=== PATIENT | female | born 1985 | race Caucasian/White ===

== ENCOUNTER 2016-10-01 16:37 | Emergency (ER) | payer OTHER ==
[2016-10-01 16:41] VITALS: BP 134/73; PULSE 69; TEMP 98; BMI 32.3
--- NOTE | 2016-10-01 16:41 | PDOC ---
Rapid Medical Evaluation Time Seen by Provider: 10/01/16 16:39 Medical Evaluation: 10/01/16 16:40 30 yo F c/o 4cm vertical lac to medial distal forearm after accidentally cutting herself with a slip box changer while " doing a project". Bleeding controlled with bandaid. Last tetanus x2 years ago
[2016-10-01] MEDS ORDERED: IBUPROFEN 600 MG TABLET (FP) PO ONE ×2 (17:19→17:35)
--- NOTE | 2016-10-01 17:45 | PDOC ---
History of Present Illness - General Chief Complaint: Laceration Stated Complaint: LACERATION Time Seen by Provider: 10/01/16 16:39 - History of Present Illness Initial Comments: 10/01/16 17:45 CHIEF COMPLAINT: Laceration HISTORY OF PRESENT ILLNESS: This is an otherwise healthy 30 year old female who presents for accidental laceration to the left 1st forearm sustained just prior to arrival while using a boxcutter. REVIEW OF SYSTEMS: GENERAL/CONSTITUTIONAL: No fever or chills. No weakness. No weight change. SKIN: See HPI. NEUROLOGIC: No loss of sensation. HEMATOLOGIC/LYMPHATIC: No anemia, easy bleeding, or history of blood clots. ALLERGIC/IMMUNOLOGIC: No hives or skin allergy. No latex allergy. PHYSICAL EXAM: GENERAL: The patient is awake, alert, and fully oriented, in no acute distress. ABDOMEN: 3cm linear laceration to volar aspect of left forearm with minimal active bleeding. EXTREMITIES: Normal range of motion, no edema. NEUROLOGICAL: Normal speech, normal gait. CN II-XII grossly intact. Movement and sensation of fingers intact. Two point discrimination intact. PSYCH: Normal mood, normal affect. SKIN: Warm, dry, normal turgor, no rashes or lesions noted. Past History - Past Medical History Allergies/Adverse Reactions: Allergies Allergy/AdvReac Type Severity Reaction Status Date / Time No Known Allergies Allergy Verified 10/01/16 16:41 Home Medications: Ambulatory Orders NK [No Known Home Medication] 10/01/16 Other medical history: DENIES - Psycho/Social/Smoking Cessation Hx Suicidal Ideation: No Smoking History: Never smoked Information on smoking cessation initiated: No *Physical Exam - Vital Signs Last Vital Signs Temp Pulse Resp BP Pulse Ox 98 F 69 18 134/73 98 10/01/16 16:39 10/01/16 16:39 10/01/16 16:39 10/01/16 16:39 10/01/16 16:39 Procedures - Laceration/Wound Repair Left Volar Arm Wound Length: 2.6 to 5.0 cm Wound Explored: clean Wound's Depth, Shape: into muscle, linear Irrigated w/ Saline: Yes Betadine Prep: Yes Anesthesia: 1% Lidocaine w/ Epi Amount of Anesthetic (ccs): 2 Wound Debrided: minimal Wound Repaired With: Sutures Suture Size/Type: 5:0 Number of Sutures: 7 Sterile Dressing Applied: Yes Medical Decision Making - Medical Decision Making 10/01/16 17:47 A/P: 30 year old female with laceration. -Tetanus booster was given while she was with her child, who is now 19 months old -Ibuprofen for pain -Wound irrigation and laceration repair -Followup instructions and return precautions reviewed *DC/Admit/Observation/Transfer Diagnosis at time of Disposition: Laceration - Discharge Dispostion Disposition: HOME Condition at time of disposition: Stable Admit: No - Referrals Referrals: Hiwot Campo [Primary Care Provider] - - Patient Instructions Printed Discharge Instructions: DI for Laceration Repair Additional Instructions: -Keep clean, dry, and covered for 48 hours -After that, wash gently with soap and water and pat dry -Apply bacitracin ointment once daily -Return here in 7-10 days to have the stitches removed -Return sooner if you develop redness around the wound, fever, or any other concerning symptoms
== END 2016-10-01 17:50 | disposition home or self-care (01) ==
LOC: JERFT 16:37
PROC: 0JQH0ZZ Repair Left Lower Arm Subcutaneous Tissue and Fascia, Open Approach (ICD-10-PCS; principal; 2016-10-01)
DX: S51.812A Laceration without foreign body of left forearm, initial encounter (principal); W27.8XXA Contact with other nonpowered hand tool, initial encounter; Y93.89 Activity, other specified; Y92.038 Other place in apartment as the place of occurrence of the external cause
CPT/HCPCS: 99281-25

== ENCOUNTER 2016-10-09 13:19 | Emergency (ER) | payer OTHER ==
[2016-10-09 13:32] VITALS: BP 116/65; PULSE 65; TEMP 97.5; BMI 32.3
[2016-10-09] MEDS ORDERED: BACITRACIN 30 GM TUBE TOPICAL OINTMENT ONE (13:57)
--- NOTE | 2016-10-09 14:06 | PDOC ---
Suture Removal/Wound Check HPI - History of Present Illness Chief Complaint: Suture/Staple Removal(Here) Stated Complaint: REMOVING STITCHES Time Seen by Provider: 10/09/16 13:47 History Source: Yes: Patient Exam Limitations: Yes: No Limitations Treated at: [facility] Date of Last ED visit: 10/01/16 - Previous ED Treatment Type of procedure performed on last visit: Yes: Laceration Repair Tetanus Immunization: Yes: Up to Date Past History - Travel Traveled outside of the country in the last 30 days: No Close contact w/someone who was outside of country & ill: No - Past Medical History Allergies/Adverse Reactions: Allergies No Known Allergies Allergy (Verified 10/09/16 13:29) Home Medications: Ambulatory Orders NK [No Known Home Medication] 10/01/16 General: Yes: no pertinent history Surgical History: Yes: No Surgical History - Immunization History Immunizations Up to Date: Yes - Social History Smoking Status: Never smoked Patient Lives Alone: No Lives With: spouse/SO Suture Removal/Wound Check PE - Physical Exam Laceration/Wound Check Symptoms: reports: None Current Severity Level: None Maximum Severity Level: None Pain Localization: None Location of Laceration/Wound: left: Arm Pain Radiation: None *Review of Systems - Review of Systems Able to Perform ROS?: Yes Constitutional: No: Symptoms Reported Musculoskeletal: No: Symptoms Reported Integumentary: No: Symptoms Reported Medical Decision Making - Medical Decision Making 10/09/16 14:07 Patient status post laceration on October 01 and was discharged home to follow-up here for suture removal today. Patient had 8 sutures removed without difficulty. Applied bacitracin to the area which I recommended to the patient that she should continue for the next 2 days twice a day. *DC/Admit/Observation/Transfer Diagnosis at time of Disposition: Visit for suture removal - Discharge Dispostion Disposition: HOME Condition at time of disposition: Good - Patient Instructions Printed Discharge Instructions: DI for Suture Removal Additional Instructions: Apply bacitracin twice a day for the next 2 days to area.
== END 2016-10-09 14:07 | disposition home or self-care (01) ==
LOC: JERFT 13:19
DX: Z48.02 Encounter for removal of sutures (principal)
CPT/HCPCS: 99281-25